=== PATIENT | male | born 1950 | race Caucasian/White ===

== ENCOUNTER → 2020-03-10 | Outpatient (CLI) | payer MEDICARE, OTHER ==
--- NOTE | 2020-03-10 16:34 | Diagnostic Imaging Report ---
Indication: Cough, shortness of breath Technique: 2 views of the chest Comparison: None Findings: . Marked elevation of the left hemidiaphragm. The lungs and pleural spaces are otherwise clear. The heart size is normal. Impression: Markedly elevated left hemidiaphragm. No acute process
== END | disposition home or self-care (01) ==
LOC: RAD 14:43
DX: Z01.818 Encounter for other preprocedural examination (principal); R05 Cough; R06.02 Shortness of breath
CPT/HCPCS: 71046